=== PATIENT | female | born 1930 | race Caucasian/White ===

== ENCOUNTER 2017-07-31 11:18 | Emergency (ER) | payer MEDICARE ==
[~2017-07-31] VITALS: Ht 154.9 cm; Wt 69.0 kg
[2017-07-31 11:29] VITALS: BP 105/64
[2017-07-31] MEDS ORDERED: ondansetron 4mg rapidly disintigrating tab PO ONE (11:40)
[2017-07-31 11:51] LABS: BASOPHILS # (AUTO) 0.1 X10'3 (0-0.2); BASOPHILS % (AUTO) 0.6 % (0-1); EOSINOPHILS # (AUTO) 0.2 X10'3 (0-0.9); EOSINOPHILS % (AUTO) 1.5 % (0-6); HEMATOCRIT 40.1 % (35.0-45.0); HEMOGLOBIN 13.8 g/dl (12.0-16.0); LYMPHOCYTES # (AUTO) 4.4 X10'3 (1.1-4.8); LYMPHOCYTES % (AUTO) 31.8 % (21-51); MEAN CORPUSCULAR HEMOGLOBIN 32.2 PG (27.0-31.0); MEAN CORPUSCULAR HGB CONC 34.4 % (33.0-36.5); MEAN CORPUSCULAR VOLUME 93.3 FL (78-98); MEAN PLATELET VOLUME 9.3 FL (7.4-10.4); MONOCYTES # (AUTO) 0.7 X10'3 (0-0.9); MONOCYTES % (AUTO) 4.8 % (2-12); NEUTROPHILS # (AUTO) 8.5 X10'3 (1.8-7.7); NEUTROPHILS % (AUTO) 61.3 % (42-75); PLATELET COUNT 233 X10'3 (140-440); RED BLOOD COUNT 4.29 X10'6 (4.20-5.60); RED CELL DISTRIBUTION WIDTH 13.4 % (11.5-14.5); WHITE BLOOD COUNT 13.8 X10'3 (4.5-11.0)
[2017-07-31] MEDS ORDERED: gabapentin 400mg capsule PO ONE (12:00)
[2017-07-31] MEDS ORDERED: GABA-530 PO (12:02)
[2017-07-31] MEDS ORDERED: ONDA4TAB6 PO (12:02)
[2017-07-31] MEDS ORDERED: PANT-47 PO (12:02)
[2017-07-31] MEDS ORDERED: gabapentin 100mg capsule PO ONE (12:05)
[2017-07-31 12:09] LABS: ALANINE AMINOTRANSFERASE 37 U/L (12-78); ALBUMIN 4.2 G/DL (3.4-5.0); ALBUMIN/GLOBULIN RATIO 1.2 (1.1-1.5); ALKALINE PHOSPHATASE 46 IU/L (46-116); ANION GAP 13 (8-16); ASPARTATE AMINO TRANSFERASE 22 U/L (10-37); BILIRUBIN,TOTAL 0.5 MG/DL (0.1-1.0); BLOOD UREA NITROGEN 96 MG/DL (7-18); BUN/CREATININE RATIO 41.2 (6.6-38.0); CALCIUM 8.8 MG/DL (8.5-10.1); CHLORIDE 104 MMOL/L (99-107); CREATININE 2.33 MG/DL (0.40-0.90); GLUCOSE 124 MG/DL (70-104); POTASSIUM 4.4 MMOL/L (3.5-5.1); SODIUM 136 MMOL/L (135-145); TOTAL CARBON DIOXIDE 19.2 MMOL/L (24-32); TOTAL PROTEIN 7.8 G/DL (6.4-8.2); eGFR 20 ML/MIN
== END 2017-07-31 12:47 | disposition home or self-care (01) ==
LOC: ER 11:19
DX: F11.23 Opioid dependence with withdrawal (principal); R11.10 Vomiting, unspecified; R19.7 Diarrhea, unspecified; G89.29 Other chronic pain; Z79.899 Other long term (current) drug therapy
CPT/HCPCS: 36415; 80053; 85025; 99284

== ENCOUNTER 2017-08-03 12:38 | Inpatient (IN) | payer MEDICARE ==
[~2017-08-03] VITALS: Ht 157.5 cm; Wt 69.0 kg
[~2017-08-03 12:38] MED LIST: GABA-530 PO; ONDA4TAB6 PO; PANT-47 PO
[2017-08-03 13:36] LABS: BASOPHILS % (AUTO) 0.3 % (0-1); EOSINOPHILS # (AUTO) 0.1 X10'3 (0-0.9); EOSINOPHILS % (AUTO) 0.9 % (0-6); HEMATOCRIT 37.4 % (35.0-45.0); HEMOGLOBIN 12.8 g/dl (12.0-16.0); LYMPHOCYTES # (AUTO) 3.4 X10'3 (1.1-4.8); LYMPHOCYTES % (AUTO) 25.6 % (21-51); MEAN CORPUSCULAR HEMOGLOBIN 32.1 PG (27.0-31.0); MEAN CORPUSCULAR HGB CONC 34.2 % (33.0-36.5); MEAN CORPUSCULAR VOLUME 93.7 FL (78-98); MEAN PLATELET VOLUME 9.6 FL (7.4-10.4); MONOCYTES # (AUTO) 0.6 X10'3 (0-0.9); MONOCYTES % (AUTO) 4.4 % (2-12); NEUTROPHILS # (AUTO) 9.2 X10'3 (1.8-7.7); NEUTROPHILS % (AUTO) 68.8 % (42-75); PLATELET COUNT 218 X10'3 (140-440); RED BLOOD COUNT 3.99 X10'6 (4.20-5.60); RED CELL DISTRIBUTION WIDTH 13.9 % (11.5-14.5); WHITE BLOOD COUNT 13.3 X10'3 (4.5-11.0)
[2017-08-03 13:47] LABS: PARTIAL THROMBOPLASTIN TIME 27 SECONDS (22-32); PROTHROMBIN TIME 10.1 SECONDS (9.0-12.0)
[2017-08-03 13:52] LABS: ALBUMIN 3.8 G/DL (3.4-5.0); ANION GAP 16 (8-16); BILIRUBIN,TOTAL 0.2 MG/DL (0.1-1.0); BLOOD UREA NITROGEN 128 MG/DL (7-18); BUN/CREATININE RATIO 33.4 (6.6-38.0); CALCIUM 8.8 MG/DL (8.5-10.1); CHLORIDE 100 MMOL/L (99-107); CREATININE 3.83 MG/DL (0.40-0.90); GLUCOSE 114 MG/DL (70-104); POTASSIUM 4.2 MMOL/L (3.5-5.1); SODIUM 132 MMOL/L (135-145); TOTAL CARBON DIOXIDE 16.5 MMOL/L (24-32); TOTAL PROTEIN 7.2 G/DL (6.4-8.2); eGFR 11 ML/MIN
[2017-08-03 13:53] LABS: ALANINE AMINOTRANSFERASE 26 U/L (12-78); ALBUMIN/GLOBULIN RATIO 1.1 (1.1-1.5); ALKALINE PHOSPHATASE 53 IU/L (46-116); ASPARTATE AMINO TRANSFERASE 13 U/L (10-37)
[2017-08-03] MEDS ORDERED: normal saline 1000ML IV soln IVB ONE (16:15)
[2017-08-03] MEDS ORDERED: HYDR28CR14 TOP (16:16)
[2017-08-03] MEDS ORDERED: ASPI-1071 PO (16:16)
[2017-08-03] MEDS ORDERED: LISI-600 PO (16:16)
[2017-08-03] MEDS ORDERED: CELE-193 PO (16:16)
[2017-08-03 16:18] LABS: CLARITY,URINE CLOUDY (Clear); COLOR,URINE YELLOW (Yellow); GLUCOSE, URINE NEGATIVE (Neg); KETONES,URINE NEGATIVE (Neg); LEUKOCYTE ESTERASE ,URINE LARGE (Neg); NITRITES, URINE NEGATIVE (Neg); OCCULT BLOOD,URINE LARGE (Neg); PROTEIN,URINE TRACE mg/dl (Neg); UROBILINOGEN,URINE 0.2 E.U/dL (0.2-1.0)
[2017-08-03 16:20] LABS: UA COLLECTION TYPE OTHER
[2017-08-03 16:23] LABS: HYALINE CASTS 0-3 /LPF (NEGATIVE); SQUAMOUS EPITHELIAL CELL,UR MODERATE /LPF (FEW); TRANSITIONAL EPI CELLS,URINE MANY /HPF
[2017-08-03 16:24] LABS: BACTERIA,URINE 3+ /HPF (Neg); WBC,URINE 50-100 /HPF (0-4)
[2017-08-03] MEDS ORDERED: magnesium 2GM in 50ml NS 50 ML IV PRN (17:25)
[2017-08-03] MEDS ORDERED: potassium Cl 20 mEq SR tablet PO PRN ×2 (17:25)
[2017-08-03] MEDS ORDERED: magnesium 4gm in 100ml NS 100 ML IV PRN (17:25)
[2017-08-03] MEDS ORDERED: CefTRIAXone 1000mg IM Kit (w/lidocaine diluent) IM ONE (17:25)
[2017-08-03] MEDS ORDERED: magnesium Cl slow-release 64mg tablet PO PRN (17:25)
[2017-08-03] MEDS ORDERED: acetaminophen 650mg rectal suppository RC PRN (17:25)
[2017-08-03] MEDS ORDERED: mag hydrox/Alum hydrox/simeth 30ml oral suspension PO PRN (17:25)
[2017-08-03] MEDS ORDERED: morphine 4 MG/ML inj SYRINge IV PRN ×2 (17:25)
[2017-08-03] MEDS ORDERED: diphenhydrAMINE 50 mg/ml inj IV PRN (17:25)
[2017-08-03] MEDS ORDERED: HYDROcodone/acetaminophen 10/325mg tab PO PRN (17:25)
[2017-08-03] MEDS ORDERED: acetaminophen 325mg tablet PO PRN ×2 (17:25)
[2017-08-03] MEDS ORDERED: ondansetron/PF 4mg/2ml inj IV PRN (17:25)
[2017-08-03] MEDS ORDERED: potassium Cl 40MEQ/NS 500ml 500 ML IV PRN ×2 (17:25)
[2017-08-03] MEDS ORDERED: magnesium hydroxide 30ml (MOM) UD suspension PO PRN (17:25)
[2017-08-03] MEDS: K and/or MAG REPLACEMENT MC SCH (17:51)
[2017-08-03] MEDS: normal saline 1000ml 1,000 ML IV SCH ×2 (18:09→23:42)
[2017-08-03 19:30] VITALS: BP_SYST 65; BP_SYST 94; BP_DIAS 34
[2017-08-03] MEDS ORDERED: normal saline 500ml IV soln 500 ML IV ONE ×2 (20:10→22:15)
[2017-08-03] MEDS: heparin, porcine 5000 units/ml vial SQ SCH (21:12)
[2017-08-03 23:40] VITALS: BP 102/50
[2017-08-03] MEDS: gabapentin 100mg capsule PO SCH (23:40)
[2017-08-04 06:01] LABS: BASOPHILS % (AUTO) 0.4 % (0-1); EOSINOPHILS # (AUTO) 0.2 X10'3 (0-0.9); HEMATOCRIT 34.1 % (35.0-45.0); HEMOGLOBIN 11.5 g/dl (12.0-16.0); LYMPHOCYTES # (AUTO) 2.2 X10'3 (1.1-4.8); MEAN CORPUSCULAR HEMOGLOBIN 31.8 PG (27.0-31.0); MEAN CORPUSCULAR HGB CONC 33.8 % (33.0-36.5); MEAN CORPUSCULAR VOLUME 94.1 FL (78-98); MEAN PLATELET VOLUME 9.9 FL (7.4-10.4); MONOCYTES # (AUTO) 0.6 X10'3 (0-0.9); MONOCYTES % (AUTO) 5.7 % (2-12); NEUTROPHILS # (AUTO) 7.3 X10'3 (1.8-7.7); NEUTROPHILS % (AUTO) 70.9 % (42-75); PLATELET COUNT 211 X10'3 (140-440); RED BLOOD COUNT 3.62 X10'6 (4.20-5.60); RED CELL DISTRIBUTION WIDTH 13.8 % (11.5-14.5); WHITE BLOOD COUNT 10.3 X10'3 (4.5-11.0)
[2017-08-04 06:29] LABS: ALANINE AMINOTRANSFERASE 17 U/L (12-78); ALBUMIN 3.1 G/DL (3.4-5.0); ALKALINE PHOSPHATASE 46 IU/L (46-116); ANION GAP 12 (8-16); ASPARTATE AMINO TRANSFERASE 14 U/L (10-37); BILIRUBIN,TOTAL 0.2 MG/DL (0.1-1.0); BLOOD UREA NITROGEN 99 MG/DL (7-18); CALCIUM 8.4 MG/DL (8.5-10.1); CHLORIDE 114 MMOL/L (99-107); CREATININE 2.54 MG/DL (0.40-0.90); GLUCOSE 99 MG/DL (70-104); MAGNESIUM 2.5 MG/DL (1.5-2.4); POTASSIUM 4.1 MMOL/L (3.5-5.1); SODIUM 143 MMOL/L (135-145); TOTAL CARBON DIOXIDE 16.6 MMOL/L (24-32); TOTAL PROTEIN 6.2 G/DL (6.4-8.2); eGFR 18 ML/MIN
[2017-08-04] MEDS: aspirin 81mg tablet.DR PO SCH (07:41)
[2017-08-04] MEDS: gabapentin 100mg capsule PO SCH ×3 (07:42→23:52)
[2017-08-04] MEDS: pantoprazole 40mg Tablet.DR PO SCH (07:42)
[2017-08-04] MEDS: normal saline 1000ml 1,000 ML IV SCH ×2 (07:48→20:15)
[2017-08-04] MEDS: heparin, porcine 5000 units/ml vial SQ SCH ×2 (07:49→20:15)
[2017-08-04] MEDS: lisinopril 20mg tablet PO SCH (07:50)
[2017-08-04] MEDS: K and/or MAG REPLACEMENT MC SCH (08:00)
[2017-08-04 08:02] VITALS: BP 122/63
[2017-08-04 12:00] VITALS: BP 101/47
[2017-08-04] MEDS: CefTRIAXone/D5W-Rocephin 1gm 50 ML IV SCH (13:52)
[2017-08-04 19:00] VITALS: BP 127/57
[2017-08-04] MEDS: HYDROcodone/acetaminophen 5mg/325mg tablet PO PRN (20:23)
[2017-08-04] MEDS: sodium bicarbonate 650mg tablet PO SCH (21:07)
[2017-08-05] VITALS: BP 124/52
[2017-08-05] MEDS: HYDROcodone/acetaminophen 5mg/325mg tablet PO PRN ×2 (05:05→19:39)
[2017-08-05] MEDS: normal saline 1000ml 1,000 ML IV SCH ×2 (05:07→16:00)
[2017-08-05 05:21] LABS: BASOPHILS # (AUTO) 0.1 X10'3 (0-0.2); BASOPHILS % (AUTO) 0.7 % (0-1); EOSINOPHILS # (AUTO) 0.2 X10'3 (0-0.9); HEMATOCRIT 27.9 % (35.0-45.0); HEMOGLOBIN 9.4 g/dl (12.0-16.0); LYMPHOCYTES % (AUTO) 30.4 % (21-51); MEAN CORPUSCULAR HEMOGLOBIN 31.6 PG (27.0-31.0); MEAN CORPUSCULAR HGB CONC 33.5 % (33.0-36.5); MEAN CORPUSCULAR VOLUME 94.4 FL (78-98); MEAN PLATELET VOLUME 10.6 FL (7.4-10.4); MONOCYTES # (AUTO) 0.7 X10'3 (0-0.9); NEUTROPHILS # (AUTO) 5.9 X10'3 (1.8-7.7); NEUTROPHILS % (AUTO) 59.9 % (42-75); PLATELET COUNT 173 X10'3 (140-440); RED BLOOD COUNT 2.96 X10'6 (4.20-5.60); RED CELL DISTRIBUTION WIDTH 14.2 % (11.5-14.5); WHITE BLOOD COUNT 9.8 X10'3 (4.5-11.0)
[2017-08-05 05:44] LABS: LARGE PLATELETS FEW; PLATELET ESTIMATE NORMAL
[2017-08-05 06:11] LABS: ALANINE AMINOTRANSFERASE 18 U/L (12-78); ALBUMIN 2.5 G/DL (3.4-5.0); ALBUMIN/GLOBULIN RATIO 0.9 (1.1-1.5); ALKALINE PHOSPHATASE 38 IU/L (46-116); ANION GAP 10 (8-16); ASPARTATE AMINO TRANSFERASE 14 U/L (10-37); BILIRUBIN,TOTAL 0.2 MG/DL (0.1-1.0); BLOOD UREA NITROGEN 63 MG/DL (7-18); BUN/CREATININE RATIO 37.7 (6.6-38.0); CALCIUM 7.9 MG/DL (8.5-10.1); CHLORIDE 116 MMOL/L (99-107); CREATININE 1.67 MG/DL (0.40-0.90); GLUCOSE 100 MG/DL (70-104); MAGNESIUM 1.9 MG/DL (1.5-2.4); POTASSIUM 4.7 MMOL/L (3.5-5.1); SODIUM 144 MMOL/L (135-145); TOTAL CARBON DIOXIDE 17.8 MMOL/L (24-32); TOTAL PROTEIN 5.3 G/DL (6.4-8.2); eGFR 29 ML/MIN
[2017-08-05] MEDS: K and/or MAG REPLACEMENT MC SCH (08:00)
[2017-08-05] MEDS: aspirin 81mg tablet.DR PO SCH (08:03)
[2017-08-05] MEDS: lisinopril 20mg tablet PO SCH (08:03)
[2017-08-05] MEDS: pantoprazole 40mg Tablet.DR PO SCH (08:03)
[2017-08-05] MEDS: heparin, porcine 5000 units/ml vial SQ SCH ×2 (08:04→19:40)
[2017-08-05] MEDS: gabapentin 100mg capsule PO SCH ×3 (08:04→23:42)
[2017-08-05] MEDS: CefTRIAXone/D5W-Rocephin 1gm 50 ML IV SCH (08:04)
[2017-08-05 09:13] VITALS: BP 131/63
[2017-08-05 12:01] VITALS: BP 118/60
[2017-08-05] MEDS: sodium bicarbonate 650mg tablet PO SCH ×3 (12:17→20:56)
[2017-08-05 19:00] VITALS: BP 130/77
[2017-08-05] MEDS: lactobacillus rhamnosus 10,000 MMU CELLS/CAPSULE PO SCH (19:39)
[2017-08-05] MEDS: temazepam 15mg capsule PO PRN (20:57)
[2017-08-06] VITALS: BP 123/53
[2017-08-06] MEDS: normal saline 1000ml 1,000 ML IV SCH ×3 (01:41→23:52)
[2017-08-06 05:25] LABS: BASOPHILS % (AUTO) 0.4 % (0-1); EOSINOPHILS # (AUTO) 0.4 X10'3 (0-0.9); EOSINOPHILS % (AUTO) 3.9 % (0-6); HEMATOCRIT 27.6 % (35.0-45.0); HEMOGLOBIN 9.4 g/dl (12.0-16.0); LYMPHOCYTES # (AUTO) 4.2 X10'3 (1.1-4.8); LYMPHOCYTES % (AUTO) 43.6 % (21-51); MEAN CORPUSCULAR HEMOGLOBIN 31.8 PG (27.0-31.0); MEAN CORPUSCULAR HGB CONC 33.9 % (33.0-36.5); MEAN CORPUSCULAR VOLUME 93.8 FL (78-98); MEAN PLATELET VOLUME 9.7 FL (7.4-10.4); MONOCYTES # (AUTO) 0.8 X10'3 (0-0.9); MONOCYTES % (AUTO) 8.1 % (2-12); NEUTROPHILS # (AUTO) 4.3 X10'3 (1.8-7.7); PLATELET COUNT 186 X10'3 (140-440); RED BLOOD COUNT 2.94 X10'6 (4.20-5.60); RED CELL DISTRIBUTION WIDTH 13.9 % (11.5-14.5); WHITE BLOOD COUNT 9.7 X10'3 (4.5-11.0)
[2017-08-06 05:28] LABS: ALANINE AMINOTRANSFERASE 17 U/L (12-78); ALBUMIN 2.4 G/DL (3.4-5.0); ALBUMIN/GLOBULIN RATIO 0.9 (1.1-1.5); ALKALINE PHOSPHATASE 34 IU/L (46-116); ANION GAP 9 (8-16); ASPARTATE AMINO TRANSFERASE 13 U/L (10-37); BILIRUBIN,TOTAL 0.2 MG/DL (0.1-1.0); BLOOD UREA NITROGEN 34 MG/DL (7-18); CALCIUM 8.1 MG/DL (8.5-10.1); CHLORIDE 117 MMOL/L (99-107); GLUCOSE 92 MG/DL (70-104); MAGNESIUM 1.5 MG/DL (1.5-2.4); PHOSPHORUS 2.1 MG/DL (2.3-4.5); POTASSIUM 4.4 MMOL/L (3.5-5.1); SODIUM 147 MMOL/L (135-145); TOTAL CARBON DIOXIDE 21.3 MMOL/L (24-32); TOTAL PROTEIN 5.1 G/DL (6.4-8.2); eGFR 53 ML/MIN
[2017-08-06] MEDS: K and/or MAG REPLACEMENT MC SCH (08:00)
[2017-08-06 08:53] VITALS: BP 114/50
[2017-08-06] MEDS: CefTRIAXone/D5W-Rocephin 1gm 50 ML IV SCH (09:45)
[2017-08-06] MEDS: lactobacillus rhamnosus 10,000 MMU CELLS/CAPSULE PO SCH ×2 (09:45→20:30)
[2017-08-06] MEDS: gabapentin 100mg capsule PO SCH ×3 (09:46→23:51)
[2017-08-06] MEDS: aspirin 81mg tablet.DR PO SCH (09:46)
[2017-08-06] MEDS: pantoprazole 40mg Tablet.DR PO SCH (09:47)
[2017-08-06] MEDS: sodium bicarbonate 650mg tablet PO SCH ×3 (09:49→20:30)
[2017-08-06] MEDS: lisinopril 20mg tablet PO SCH (09:49)
[2017-08-06] MEDS: heparin, porcine 5000 units/ml vial SQ SCH ×2 (09:53→20:30)
[2017-08-06 11:15] VITALS: BP_SYST 114; BP_SYST 151; BP_DIAS 55; BP_DIAS 76
[2017-08-06] MEDS: HYDROcodone/acetaminophen 5mg/325mg tablet PO PRN ×2 (16:11→21:57)
[2017-08-06 19:00] VITALS: BP 144/87
[2017-08-06] MEDS: temazepam 15mg capsule PO PRN (21:55)
[2017-08-07] VITALS: BP 136/55
[2017-08-07 06:15] LABS: BASOPHILS % (AUTO) 0.2 % (0-1); EOSINOPHILS # (AUTO) 0.4 X10'3 (0-0.9); EOSINOPHILS % (AUTO) 4.3 % (0-6); HEMATOCRIT 26.3 % (35.0-45.0); LYMPHOCYTES # (AUTO) 4.1 X10'3 (1.1-4.8); LYMPHOCYTES % (AUTO) 46.3 % (21-51); MEAN CORPUSCULAR HEMOGLOBIN 32.1 PG (27.0-31.0); MEAN CORPUSCULAR HGB CONC 34.1 % (33.0-36.5); MEAN CORPUSCULAR VOLUME 94.3 FL (78-98); MEAN PLATELET VOLUME 9.4 FL (7.4-10.4); MONOCYTES # (AUTO) 0.7 X10'3 (0-0.9); MONOCYTES % (AUTO) 7.8 % (2-12); NEUTROPHILS # (AUTO) 3.7 X10'3 (1.8-7.7); NEUTROPHILS % (AUTO) 41.4 % (42-75); PLATELET COUNT 178 X10'3 (140-440); RED BLOOD COUNT 2.79 X10'6 (4.20-5.60); WHITE BLOOD COUNT 8.9 X10'3 (4.5-11.0)
[2017-08-07 06:33] LABS: ALANINE AMINOTRANSFERASE 25 U/L (12-78); ALBUMIN 2.3 G/DL (3.4-5.0); ALBUMIN/GLOBULIN RATIO 0.9 (1.1-1.5); ALKALINE PHOSPHATASE 30 IU/L (46-116); ANION GAP 8 (8-16); ASPARTATE AMINO TRANSFERASE 23 U/L (10-37); BILIRUBIN,TOTAL 0.2 MG/DL (0.1-1.0); BLOOD UREA NITROGEN 21 MG/DL (7-18); BUN/CREATININE RATIO 22.3 (6.6-38.0); CHLORIDE 115 MMOL/L (99-107); CREATININE 0.94 MG/DL (0.40-0.90); GLUCOSE 93 MG/DL (70-104); MAGNESIUM 1.3 MG/DL (1.5-2.4); PHOSPHORUS 2.3 MG/DL (2.3-4.5); POTASSIUM 4.2 MMOL/L (3.5-5.1); SODIUM 146 MMOL/L (135-145); TOTAL CARBON DIOXIDE 22.7 MMOL/L (24-32); eGFR 57 ML/MIN
[2017-08-07 07:30] VITALS: BP 131/49
[2017-08-07] MEDS: K and/or MAG REPLACEMENT MC SCH (08:00)
[2017-08-07] MEDS: lactobacillus rhamnosus 10,000 MMU CELLS/CAPSULE PO SCH (08:03)
[2017-08-07] MEDS: CefTRIAXone/D5W-Rocephin 1gm 50 ML IV SCH (08:03)
[2017-08-07] MEDS: sodium bicarbonate 650mg tablet PO SCH ×2 (08:04→14:56)
[2017-08-07] MEDS: gabapentin 100mg capsule PO SCH (08:04)
[2017-08-07] MEDS: pantoprazole 40mg Tablet.DR PO SCH (08:04)
[2017-08-07] MEDS: aspirin 81mg tablet.DR PO SCH (08:04)
[2017-08-07] MEDS: lisinopril 20mg tablet PO SCH (08:04)
[2017-08-07] MEDS: heparin, porcine 5000 units/ml vial SQ SCH (08:12)
[2017-08-07] MEDS ORDERED: LISI1TAB9 (09:06)
[2017-08-07 11:00] VITALS: BP 134/50
[2017-08-07] MEDS: normal saline 1000ml 1,000 ML IV SCH (13:20)
[2017-08-07] MEDS: HYDROcodone/acetaminophen 5mg/325mg tablet PO PRN (14:57)
== END 2017-08-07 15:00 | DRG 689 ==
LOC: ER 12:39 → ED HOLD 17:21 → MED 3N 19:30
PROVIDERS: ADMIT Family Medicine; ATTEND Family Medicine
DX: N39.0 Urinary tract infection, site not specified (principal); N17.0 Acute kidney failure with tubular necrosis; E87.2 Acidosis; E87.1 Hypo-osmolality and hyponatremia; F11.23 Opioid dependence with withdrawal; Z60.2 Problems related to living alone; E86.0 Dehydration; G89.4 Chronic pain syndrome; I10 Essential (primary) hypertension; K21.9 Gastro-esophageal reflux disease without esophagitis; B96.20 Unspecified Escherichia coli [E. coli] as the cause of diseases classified elsewhere; M54.9 Dorsalgia, unspecified; L98.9 Disorder of the skin and subcutaneous tissue, unspecified; M19.90 Unspecified osteoarthritis, unspecified site; Z79.82 Long term (current) use of aspirin; Z79.899 Other long term (current) drug therapy; Z82.49 Family history of ischemic heart disease and other diseases of the circulatory system
CPT/HCPCS: 36415; 71045; 80053; 81001; 83605; 83735; 84100; 84145; 85025; 85610; 85730; 87040; 87070; 87077; 87088; 87186; 93005; 96360; 97116; 97161; 99285; A6258; J0696; J1644; J7030